=== PATIENT | female | born 1940 | race Caucasian/White ===

== ENCOUNTER → 2018-03-12 | Outpatient (CLI) | payer OTHER ==
[~2018-03-12] MED LIST: ABILIFY 5 MG TAB5 MG PO; AMITRIPTYLINE H10 M1 PO; B COMPLETE1 EAC1 PO; BENTYL 10 MG CA10 M1 PO; CLONAZEPAM 1 MG1 M1 PO; CLOTRIMAZOLE-BE15 GM TOP; CORICIDIN HBP1 EAC5 PO; EMIRON; FIORICET; HYDROCODONE-AP1 EAC6 PO; HYDROXYZINE HCL10 M1 PO; LOPERAMIDE 2 MG2 M1 PO; NIACIN 500 MG500 M1 PO; NORVASC 5 MG TAB5 MG PO; PAXIL; PRILOSEC 20 MG20 MG PO; PROMETHAZINE12.5 M1 PO; VITAMIN D1000 UNI1 PO
== END ==
LOC: M.RAD 10:33
DX: R13.12 Dysphagia, oropharyngeal phase (principal); N30.10 Interstitial cystitis (chronic) without hematuria; I10 Essential (primary) hypertension; M13.0 Polyarthritis, unspecified; I25.10 Atherosclerotic heart disease of native coronary artery without angina pectoris; Z68.26 Body mass index [BMI] 26.0-26.9, adult

== ENCOUNTER → 2018-04-03 | Outpatient (CLI) | payer OTHER | LOC: M.NUC | DX: I10 Essential (primary) hypertension (principal); N30.10 Interstitial cystitis (chronic) without hematuria; R13.12 Dysphagia, oropharyngeal phase; M13.0 Polyarthritis, unspecified; I25.10 Atherosclerotic heart disease of native coronary artery without angina pectoris; Z68.26 Body mass index [BMI] 26.0-26.9, adult ==

== ENCOUNTER → 2018-12-19 | Outpatient (CLI) | payer OTHER | LOC: M.ULTRA 12:08 | DX: M79.89 Other specified soft tissue disorders (principal) ==

== ENCOUNTER → 2020-04-16 | Outpatient (CLI) | payer MEDICARE | LOC: M.ULTRA 10:13 | PROVIDERS: ATTEND Internal Medicine | DX: R22.42 Localized swelling, mass and lump, left lower limb (principal) ==